=== PATIENT | female | born 1955 | race Caucasian/White ===

== ENCOUNTER 2020-11-13 20:43 | Emergency (ER) | payer BC ==
[~2020-11-13] VITALS: Ht 160 cm; Wt 72.6 kg
[2020-11-13] MEDS ORDERED: CHILDREN'S ASPI81 M1 PO (21:17)
[2020-11-13] MEDS ORDERED: ZETIA10 MG PO (21:17)
[2020-11-13] MEDS ORDERED: ZOLOFT50 M1 PO (21:17)
[2020-11-13] MEDS ORDERED: PRALUENT P150 MG/1 M (21:18)
[2020-11-13 22:39] VITALS: BP 102/71
== END 2020-11-13 22:30 | disposition home or self-care (01) ==
LOC: ER 20:43
DX: S80.812A Abrasion, left lower leg, initial encounter (principal); M25.522 Pain in left elbow; Z90.710 Acquired absence of both cervix and uterus; Z79.899 Other long term (current) drug therapy; Z79.82 Long term (current) use of aspirin; Z88.8 Allergy status to other drugs, medicaments and biological substances; W01.0XXA Fall on same level from slipping, tripping and stumbling without subsequent striking against object, initial encounter; Y93.89 Activity, other specified; Y92.89 Other specified places as the place of occurrence of the external cause; Y99.8 Other external cause status